=== PATIENT | male | born 1955 | race African-American/Black ===

== ENCOUNTER 2023-01-04 01:42 | Inpatient (IN) | payer OTHER, MEDICARE ==
[2023-01-04] VITALS (16 sets, daily range): BP systolic 83–141; BP diastolic 46–88; PULSE 79–111; RESP 9–34; TEMP 100.4–104.1; O2SAT 91–100
[~2023-01-04] VITALS: Ht 180.3 cm; Wt 97.5 kg
[2023-01-04] MEDS ORDERED: ACETAMINOPHEN 325 MG TAB PO ONE (02:00)
[2023-01-04] MEDS ORDERED: SODIUM CHLORIDE 0.9% 1000ML 1,000 ML IV ONE ×2 (02:15→03:00)
[2023-01-04] MEDS ORDERED: ACETAMINOPHEN 325 MG TAB ONE (02:16)
[2023-01-04] MEDS ORDERED: SODIUM CHLORIDE 0.9% 1000ML 1,000 ML ONE ×2 (02:16→03:12)
[2023-01-04] MEDS ORDERED: ONDANSETRON HCL INJ 2MG/ML 2ML 2 MG/ML VIAL IV STA ×2 (02:48→08:11)
[2023-01-04] MEDS ORDERED: Morphine 2mg Syringe 2 MG/ML SYR IV ONE (03:00)
[2023-01-04] MEDS ORDERED: Morphine 4mg INJECTION 4 MG/ML INJ ONE ×2 (03:12→08:03)
[2023-01-04] MEDS ORDERED: ONDANSETRON HCL INJ 2MG/ML 2ML 2 MG/ML VIAL ONE (03:12)
[2023-01-04] MEDS ORDERED: ONDANSETRON HCL INJ 2MG/ML 2ML 2 MG/ML VIAL IV PRN ×2 (03:30→08:15)
[2023-01-04] MEDS ORDERED: Morphine 2mg Syringe 2 MG/ML SYR IV PRN (03:30)
[2023-01-04] MEDS: SODIUM CHLORIDE 0.9% 1000ML 1,000 ML IV SCH ×3 (04:53→17:13)
[2023-01-04] MEDS ORDERED: SODIUM CHLORIDE 0.9% 1000ML 1,000 ML IV STA (04:59)
[2023-01-04] MEDS ORDERED: MULTIVITAMINS- 12 INJECTION 10 ML, FOLIC ACID MDV 1 MG, THIAMINE HCL INJ 100 MG in SODI... IV ONE (05:45)
[2023-01-04] MEDS ORDERED: LORAZEPAM INJ 2 MG/ML VIAL IV PRN (08:15)
[2023-01-04] MEDS ORDERED: Morphine 4mg INJECTION 4 MG/ML INJ IV ONE (08:15)
[2023-01-04] MEDS ORDERED: LORAZEPAM INJ 2 MG/ML VIAL IV ONE (08:15)
[2023-01-04] MEDS ORDERED: Morphine 4mg INJECTION 4 MG/ML INJ IV PRN (08:15)
[2023-01-04 08:33] LABS: ALBUMIN 3.1 g/dL (3.5-5.0); ALBUMIN/GLOBULIN RATIO 0.9 (0.8-2.0); CALCIUM 8.5 mg/dL (8.4-10.2); CREATININE, SERUM 1.13 mg/dL (0.72-1.25)
[2023-01-04 08:39] LABS: CREATINE KINASE MB 3.8 ng/mL (0-5.0)
[2023-01-04] MEDS ORDERED: CLONIDINE HCL 0.1 MG TAB PO PRN (11:15)
[2023-01-04] MEDS: ACETAMINOPHEN 325 MG TAB PO PRN ×2 (12:10→20:29)
[2023-01-04] MEDS: ACETAMIN/BUTALBITAL/CAFFEINE TAB PO PRN (12:10)
[2023-01-04] MEDS: CHLORDIAZEPOXIDE HCL 25 MG CAP PO SCH ×2 (12:11→17:14)
[2023-01-04] MEDS: LORAZEPAM INJ 2 MG/ML VIAL IV PRN (17:11)
[2023-01-04] MEDS ORDERED: Vancomycin IV 1 GM in SODIUM CHLORIDE 0.9% 250ML 250 ML IV ONE (17:30)
[2023-01-04] MEDS ORDERED: CRESTOR10 MG PO (17:40)
[2023-01-04] MEDS ORDERED: AMLODIPINE-BEN1 EAC4 PO (17:45)
[2023-01-04] MEDS ORDERED: AMLODIPINE-BEN1 EAC2 PO (17:47)
[2023-01-04 17:58] LABS: BASOPHILS % 0.8 % (0.0-1.0); HEMATOCRIT 40.8 % (38.2-49.6); HEMOGLOBIN 13.5 g/dL (14.0-18.0); LYMPHOCYTES # (AUTO) 0.5 (1.0-3.2); LYMPHOCYTES % 11.7 % (18.0-39.1); MEAN CORPUSCULAR HEMOGLOBIN 30.1 pg (28-32); MEAN CORPUSCULAR HGB CONC 33.1 g/dL (31-35); MEAN CORPUSCULAR VOLUME 91.1 fL (81-99); MONOCYTES # (AUTO) 0.3 (0.2-0.8); MONOCYTES % 7.1 % (4.4-11.3); NEUTROPHILS # (AUTO) 3.1 (2.1-6.9); NEUTROPHILS % 79.1 % (38.7-80.0); PLATELET COUNT 78 x10e3/uL (140-360); RED BLOOD COUNT 4.48 x10e6/uL (4.3-5.7); RED CELL DISTRIBUTION WIDTH 13.6 % (11.7-14.4)
[2023-01-04] MEDS ORDERED: ACYCLOVIR SODIUM 800 MG in SODIUM CHLORIDE 0.9% 250ML 250 ML IV SCH (18:00)
[2023-01-04] MEDS: THIAMINE HCL INJ 100 MG/ML 2ML VIAL IV SCH (19:08)
[2023-01-04] MEDS: LACTATED RINGER'S 1,000 ML INJ SCH (19:08)
[2023-01-04 19:38] LABS: BAND NEUTROPHILS % (MANUAL) 14 %; LYMPHOCYTES % (MANUAL) 8 % (19-48); MONOCYTES % (MANUAL) 5 % (3.4-9.0); NEUTROPHILS % (MANUAL) 73 % (40-74)
[2023-01-04 19:39] LABS: PLATELET ESTIMATE SLIGHTLY DECREASED; PLATELET MORPHOLOGY COMMENT NORMAL; RBC MORPHOLOGY COMMENT NORMAL
[2023-01-04] MEDS: Vancomycin IV 1.25 GM in SODIUM CHLORIDE 0.9% 250ML 250 ML IV SCH (20:01)
[2023-01-04] MEDS: CEFTRIAXONE 2 GM in SODIUM CHLORIDE 0.9% 100 ML IV SCH (20:27)
[2023-01-04] MEDS: ATORVASTATIN 20 MG TAB PO SCH (21:53)
[2023-01-04] MEDS ORDERED: ACYCLOVIR SODIUM 700 MG in SODIUM CHLORIDE 0.9% 250ML 250 ML IV SCH (22:00)
[2023-01-04] MEDS ORDERED: ACYCLOVIR SODIUM INJ 2 VIAL IV ONE (22:27)
[2023-01-04] MEDS ORDERED: SODIUM CHLORIDE 0.9% 250ML 250 ML ONE (22:31)
[2023-01-05] VITALS (36 sets, daily range): BP systolic 76–125; BP diastolic 43–97; PULSE 27–139; RESP 18–46; TEMP 98.4–103.4; O2SAT 71–100
[2023-01-05] MEDS ORDERED: Ampicillin INJ 1 GM Vial ONE (00:44)
[2023-01-05] MEDS ORDERED: SODIUM CHLORIDE 0.9% 100 ML ONE (00:44)
[2023-01-05] MEDS: CHLORDIAZEPOXIDE HCL 25 MG CAP PO SCH ×4 (00:45→18:08)
[2023-01-05] MEDS: Ampicillin INJ 2 GM in SODIUM CHLORIDE 0.9% 100 ML IV SCH ×4 (00:46→17:53)
[2023-01-05] MEDS: LACTATED RINGER'S 1,000 ML INJ SCH ×3 (01:30→16:33)
[2023-01-05] MEDS: ACETAMIN/BUTALBITAL/CAFFEINE TAB PO PRN (01:59)
[2023-01-05 05:54] LABS: BASOPHILS % 0.9 % (0.0-1.0); HEMATOCRIT 35.5 % (38.2-49.6); HEMOGLOBIN 11.7 g/dL (14.0-18.0); LYMPHOCYTES # (AUTO) 0.4 (1.0-3.2); LYMPHOCYTES % 10.1 % (18.0-39.1); MEAN CORPUSCULAR HEMOGLOBIN 29.8 pg (28-32); MEAN CORPUSCULAR VOLUME 90.6 fL (81-99); MONOCYTES # (AUTO) 0.1 (0.2-0.8); NEUTROPHILS # (AUTO) 2.9 (2.1-6.9); NEUTROPHILS % 84.7 % (38.7-80.0); PLATELET COUNT 65 x10e3/uL (140-360); RED BLOOD COUNT 3.92 x10e6/uL (4.3-5.7); RED CELL DISTRIBUTION WIDTH 13.5 % (11.7-14.4)
[2023-01-05 06:29] LABS: ALBUMIN 2.4 g/dL (3.5-5.0); ALBUMIN/GLOBULIN RATIO 0.9 (0.8-2.0); ANION GAP 12.3 mmol/L (8-16); CREATININE, SERUM 0.81 mg/dL (0.72-1.25); POTASSIUM 3.3 mmol/L (3.5-5.1)
[2023-01-05 06:33] LABS: THYROID STIMULATING HORMONE 0.455 uIU/mL (0.350-4.940)
[2023-01-05 07:30] LABS: BAND NEUTROPHILS % (MANUAL) 10 %; LYMPHOCYTES % (MANUAL) 5 % (19-48); MONOCYTES % (MANUAL) 1 % (3.4-9.0); NEUTROPHILS % (MANUAL) 84 % (40-74)
[2023-01-05] MEDS: PANTOPRAZOLE SOD 40 MG TABEC PO SCH (07:30)
[2023-01-05 07:31] LABS: PLATELET ESTIMATE MODERATELY DECREASED; PLATELET MORPHOLOGY COMMENT NORMAL; RBC MORPHOLOGY COMMENT NORMAL
[2023-01-05] MEDS: CEFTRIAXONE 2 GM in SODIUM CHLORIDE 0.9% 100 ML IV SCH ×2 (08:17→20:59)
[2023-01-05] MEDS: ACETAMINOPHEN 325 MG TAB PO PRN ×2 (08:39→19:18)
[2023-01-05] MEDS ORDERED: AMLODIPINE BESYLATE 5 MG TAB PO SCH ×2 (09:00)
[2023-01-05] MEDS ORDERED: BENAZEPRIL HCL 10 MG TAB PO SCH (09:00)
[2023-01-05 09:19] LABS: INR 1.12; PROTHROMBIN TIME 14.9 seconds (11.9-14.5)
[2023-01-05] MEDS: Vancomycin IV 1.25 GM in SODIUM CHLORIDE 0.9% 250ML 250 ML IV SCH ×2 (09:20→19:21)
[2023-01-05] MEDS: ACYCLOVIR SODIUM 700 MG in SODIUM CHLORIDE 0.9% 100 ML IV SCH ×3 (09:48→23:03)
[2023-01-05] MEDS: THIAMINE HCL INJ 100 MG/ML 2ML VIAL IV SCH (09:49)
[2023-01-05] MEDS ORDERED: METOPROLOL TARTRATE INJ 1 MG/ML VIAL IV PRN (11:15)
[2023-01-05] MEDS ORDERED: MIDAZOLAM HCL 2 MG/2 ML VIAL ONE (11:16)
[2023-01-05] MEDS ORDERED: FENTANYL CITRATE/PF 100MCG/2 ML INJ ONE (11:16)
[2023-01-05] MEDS ORDERED: POTASSIUM CHLORIDE 10MEQ/100ML 100 ML IV ONE (11:45)
[2023-01-05] MEDS ORDERED: IBUPROFEN 100 MG/5 ML SUSP PO ONE (12:15)
[2023-01-05 13:39] LABS: APPEARANCE,CSF HAZY (CLEAR); COLOR,CSF COLORLESS (COLORLESS); TUBE NUMBER 3
[2023-01-05 14:23] LABS: LYMPHOCYTES,CSF 85 % (40-80); MONOCYTES,CSF 11 %; NEUTROPHILS,CSF 4 % (0-6); WHITE BLOOD CELL,CSF 1000 cells/uL (0-5)
[2023-01-05] MEDS: ATORVASTATIN 20 MG TAB PO SCH (21:21)
[2023-01-05] MEDS: ACETAMINOPHEN 1000 MG/100 ML IV PRN (21:46)
[2023-01-05] MEDS ORDERED: METOPROLOL TARTRATE 25 MG TAB PO SCH (22:00)
[2023-01-05] MEDS: VASOPRESSIN 60 UNIT in DEXTROSE 5% 100ML 57 ML IV SCH (22:27)
[2023-01-06] VITALS (55 sets, daily range): BP systolic 60–130; BP diastolic 41–96; PULSE 32–125; RESP 19–48; TEMP 97.7–100.7; O2SAT 46–100
[2023-01-06] MEDS: Ampicillin INJ 2 GM in SODIUM CHLORIDE 0.9% 100 ML IV SCH ×4 (01:32→18:40)
[2023-01-06] MEDS: VASOPRESSIN 60 UNIT in DEXTROSE 5% 100ML 57 ML IV SCH ×2 (04:56→22:30)
[2023-01-06] MEDS: LACTATED RINGER'S 1,000 ML INJ SCH ×4 (04:57→21:04)
[2023-01-06] MEDS: ACETAMINOPHEN 1000 MG/100 ML IV PRN ×2 (05:08→15:48)
[2023-01-06] MEDS: CHLORDIAZEPOXIDE HCL 25 MG CAP PO SCH ×4 (06:02→21:32)
[2023-01-06 06:55] LABS: BASOPHILS % 0.5 % (0.0-1.0); HEMATOCRIT 31.9 % (38.2-49.6); HEMOGLOBIN 10.5 g/dL (14.0-18.0); LYMPHOCYTES # (AUTO) 0.3 (1.0-3.2); LYMPHOCYTES % 7.3 % (18.0-39.1); MEAN CORPUSCULAR HEMOGLOBIN 29.3 pg (28-32); MEAN CORPUSCULAR HGB CONC 32.9 g/dL (31-35); MEAN CORPUSCULAR VOLUME 89.1 fL (81-99); MONOCYTES # (AUTO) 0.1 (0.2-0.8); MONOCYTES % 3.1 % (4.4-11.3); NEUTROPHILS # (AUTO) 3.8 (2.1-6.9); NEUTROPHILS % 88.2 % (38.7-80.0); RED BLOOD COUNT 3.58 x10e6/uL (4.3-5.7); RED CELL DISTRIBUTION WIDTH 13.6 % (11.7-14.4)
[2023-01-06 07:05] LABS: PLATELET COUNT 40 x10e3/uL (140-360)
[2023-01-06 07:28] LABS: ALBUMIN/GLOBULIN RATIO 0.8 (0.8-2.0); ANION GAP 12.2 mmol/L (8-16); CALCIUM 7.6 mg/dL (8.4-10.2); CREATININE, SERUM 0.91 mg/dL (0.72-1.25); POTASSIUM 3.2 mmol/L (3.5-5.1)
[2023-01-06] MEDS ORDERED: SODIUM CHLORIDE 0.9% 100 ML ONE (07:53)
[2023-01-06] MEDS: PANTOPRAZOLE SOD 40 MG TABEC PO SCH (08:20)
[2023-01-06] MEDS: ACYCLOVIR SODIUM 700 MG in SODIUM CHLORIDE 0.9% 100 ML IV SCH ×3 (08:20→23:58)
[2023-01-06] MEDS: THIAMINE HCL INJ 100 MG/ML 2ML VIAL IV SCH (08:22)
[2023-01-06] MEDS: Vancomycin IV 1.25 GM in SODIUM CHLORIDE 0.9% 250ML 250 ML IV SCH ×2 (08:25→19:28)
[2023-01-06] MEDS ORDERED: CEFTRIAXONE 2 GM VIAL ONE (08:29)
[2023-01-06] MEDS: CEFTRIAXONE 2 GM in SODIUM CHLORIDE 0.9% 100 ML IV SCH ×2 (09:19→21:06)
[2023-01-06 09:39] LABS: BAND NEUTROPHILS % (MANUAL) 6 %; LYMPHOCYTES % (MANUAL) 7 % (19-48); MONOCYTES % (MANUAL) 2 % (3.4-9.0); NEUTROPHILS % (MANUAL) 85 % (40-74)
[2023-01-06 09:40] LABS: PLATELET ESTIMATE MARKEDLY DECREASED; PLATELET MORPHOLOGY COMMENT NORMAL; RBC MORPHOLOGY COMMENT NORMAL
[2023-01-06] MEDS: POTASSIUM CHLORIDE 20MEQ/100ML 100 ML IV SCH ×2 (09:56→12:29)
[2023-01-06] MEDS: LORAZEPAM INJ 2 MG/ML VIAL IV PRN (15:43)
[2023-01-06] MEDS: METOPROLOL TARTRATE 25 MG TAB PO SCH (16:56)
[2023-01-06] MEDS: ATORVASTATIN 20 MG TAB PO SCH (21:06)
[2023-01-06] MEDS: ACETAMINOPHEN 325 MG TAB PO PRN (23:58)
[2023-01-07] VITALS (66 sets, daily range): BP systolic 81–142; BP diastolic 51–104; PULSE 54–122; RESP 17–46; TEMP 96.9–101.2; O2SAT 96–100
[2023-01-07] MEDS: Ampicillin INJ 2 GM in SODIUM CHLORIDE 0.9% 100 ML IV SCH ×5 (00:12→23:19)
[2023-01-07] MEDS: CHLORDIAZEPOXIDE HCL 25 MG CAP PO SCH (05:14)
[2023-01-07] MEDS: LACTATED RINGER'S 1,000 ML INJ SCH ×3 (05:58→23:59)
[2023-01-07] MEDS: Vancomycin IV 1.25 GM in SODIUM CHLORIDE 0.9% 250ML 250 ML IV SCH (06:00)
[2023-01-07 07:05] LABS: BASOPHILS # (AUTO) 0.1 (0.0-0.1); BASOPHILS % 0.9 % (0.0-1.0); HEMATOCRIT 35.9 % (38.2-49.6); HEMOGLOBIN 11.8 g/dL (14.0-18.0); LYMPHOCYTES # (AUTO) 0.7 (1.0-3.2); LYMPHOCYTES % 12.7 % (18.0-39.1); MEAN CORPUSCULAR HEMOGLOBIN 29.4 pg (28-32); MEAN CORPUSCULAR HGB CONC 32.9 g/dL (31-35); MEAN CORPUSCULAR VOLUME 89.5 fL (81-99); MONOCYTES # (AUTO) 0.3 (0.2-0.8); MONOCYTES % 4.6 % (4.4-11.3); NEUTROPHILS # (AUTO) 4.6 (2.1-6.9); NEUTROPHILS % 81.1 % (38.7-80.0); PLATELET COUNT 39 x10e3/uL (140-360); RED BLOOD COUNT 4.01 x10e6/uL (4.3-5.7); RED CELL DISTRIBUTION WIDTH 14.4 % (11.7-14.4)
[2023-01-07] MEDS: PANTOPRAZOLE SOD 40 MG TABEC PO SCH (07:30)
[2023-01-07 07:32] LABS: ALBUMIN 2.1 g/dL (3.5-5.0); ALBUMIN/GLOBULIN RATIO 0.7 (0.8-2.0); ANION GAP 12.8 mmol/L (8-16); CREATININE, SERUM 0.85 mg/dL (0.72-1.25); POTASSIUM 3.8 mmol/L (3.5-5.1)
[2023-01-07] MEDS ORDERED: CHLORDIAZEPOXIDE HCL 25 MG CAP PO PRN (08:30)
[2023-01-07 08:44] LABS: BAND NEUTROPHILS % (MANUAL) 5 %; LYMPHOCYTES % (MANUAL) 7 % (19-48); MONOCYTES % (MANUAL) 4 % (3.4-9.0); NEUTROPHILS % (MANUAL) 80 % (40-74)
[2023-01-07 08:45] LABS: PLATELET ESTIMATE MARKEDLY DECREASED; PLATELET MORPHOLOGY COMMENT NORMAL; RBC MORPHOLOGY COMMENT NORMAL; VACUOLE,WBC SLIGHT
[2023-01-07] MEDS: METOPROLOL TARTRATE 25 MG TAB PO SCH ×2 (09:00→15:45)
[2023-01-07] MEDS: ACYCLOVIR SODIUM 700 MG in SODIUM CHLORIDE 0.9% 100 ML IV SCH (09:16)
[2023-01-07] MEDS: CEFTRIAXONE 2 GM in SODIUM CHLORIDE 0.9% 100 ML IV SCH ×2 (09:17→20:52)
[2023-01-07] MEDS: THIAMINE HCL INJ 100 MG/ML 2ML VIAL IV SCH (09:17)
[2023-01-07] MEDS ORDERED: LORAZEPAM INJ 2 MG/ML VIAL IV PRN (11:00)
[2023-01-07] MEDS: ACETAMINOPHEN 650 MG SUPP PR PRN (16:51)
[2023-01-07] MEDS: VASOPRESSIN 60 UNIT in DEXTROSE 5% 100ML 57 ML IV SCH (17:19)
[2023-01-07] MEDS: ATORVASTATIN 20 MG TAB PO SCH (21:00)
[2023-01-08] VITALS (39 sets, daily range): BP systolic 83–126; BP diastolic 23–80; PULSE 52–74; RESP 21–39; TEMP 97.2–100.8; O2SAT 94–100
[2023-01-08] MEDS: ACETAMINOPHEN 325 MG TAB PO PRN (02:20)
[2023-01-08] MEDS: Ampicillin INJ 2 GM in SODIUM CHLORIDE 0.9% 100 ML IV SCH ×3 (05:24→18:17)
[2023-01-08 06:56] LABS: BASOPHILS % 0.4 % (0.0-1.0); EOSINOPHILS % 0.2 % (0.0-6.0); HEMATOCRIT 36.2 % (38.2-49.6); HEMOGLOBIN 11.7 g/dL (14.0-18.0); LYMPHOCYTES # (AUTO) 1.1 (1.0-3.2); MEAN CORPUSCULAR HEMOGLOBIN 29.3 pg (28-32); MEAN CORPUSCULAR HGB CONC 32.3 g/dL (31-35); MEAN CORPUSCULAR VOLUME 90.5 fL (81-99); MONOCYTES # (AUTO) 0.3 (0.2-0.8); MONOCYTES % 4.7 % (4.4-11.3); NEUTROPHILS # (AUTO) 4.1 (2.1-6.9); NEUTROPHILS % 74.2 % (38.7-80.0); PLATELET COUNT 40 x10e3/uL (140-360); RED CELL DISTRIBUTION WIDTH 14.8 % (11.7-14.4)
[2023-01-08 07:14] LABS: ALBUMIN/GLOBULIN RATIO 0.7 (0.8-2.0); ANION GAP 11.4 mmol/L (8-16); CALCIUM 7.9 mg/dL (8.4-10.2); CREATININE, SERUM 0.77 mg/dL (0.72-1.25); POTASSIUM 3.4 mmol/L (3.5-5.1)
[2023-01-08] MEDS: PANTOPRAZOLE SOD 40 MG TABEC PO SCH (07:30)
[2023-01-08 08:08] LABS: BAND NEUTROPHILS % (MANUAL) 1 %; LYMPHOCYTES % (MANUAL) 4 % (19-48); MONOCYTES % (MANUAL) 3 % (3.4-9.0); NEUTROPHILS % (MANUAL) 89 % (40-74); PLATELET ESTIMATE MARKEDLY DECREASED; PLATELET MORPHOLOGY COMMENT NORMAL; RBC MORPHOLOGY COMMENT NORMAL; TOXIC GRANULATION SLIGHT; VACUOLE,WBC SLIGHT
[2023-01-08] MEDS: METOPROLOL TARTRATE 25 MG TAB PO SCH ×2 (09:00→17:00)
[2023-01-08] MEDS: CEFTRIAXONE 2 GM in SODIUM CHLORIDE 0.9% 100 ML IV SCH ×2 (09:28→20:25)
[2023-01-08] MEDS: THIAMINE HCL INJ 100 MG/ML 2ML VIAL IV SCH (09:28)
[2023-01-08] MEDS: LACTATED RINGER'S 1,000 ML INJ SCH ×2 (09:29→18:21)
[2023-01-08] MEDS: POTASSIUM CHLORIDE 20MEQ/100ML 100 ML IV SCH ×2 (10:57→13:19)
[2023-01-08] MEDS: VASOPRESSIN 60 UNIT in DEXTROSE 5% 100ML 57 ML IV SCH (13:17)
[2023-01-08] MEDS ORDERED: MAGNESIUM SULFATE 2GM/50ML 50 ML IV ONE (18:15)
[2023-01-08] MEDS: ACETAMINOPHEN 650 MG SUPP PR PRN (19:07)
[2023-01-08] MEDS: ATORVASTATIN 20 MG TAB PO SCH (20:25)
[2023-01-09] VITALS (93 sets, daily range): BP systolic 90–128; BP diastolic 52–83; PULSE 46–84; RESP 16–37; TEMP 98–98.4; O2SAT 90–100
[2023-01-09] MEDS: Ampicillin INJ 2 GM in SODIUM CHLORIDE 0.9% 100 ML IV SCH ×5 (00:05→23:42)
[2023-01-09] MEDS: LACTATED RINGER'S 1,000 ML INJ SCH ×3 (00:07→19:42)
[2023-01-09] MEDS: VASOPRESSIN 60 UNIT in DEXTROSE 5% 100ML 57 ML IV SCH (00:19)
[2023-01-09 07:11] LABS: BASOPHILS % 0.7 % (0.0-1.0); EOSINOPHILS % 0.2 % (0.0-6.0); HEMATOCRIT 32.1 % (38.2-49.6); HEMOGLOBIN 10.4 g/dL (14.0-18.0); LYMPHOCYTES # (AUTO) 1.7 (1.0-3.2); LYMPHOCYTES % 29.5 % (18.0-39.1); MEAN CORPUSCULAR HEMOGLOBIN 29.5 pg (28-32); MEAN CORPUSCULAR HGB CONC 32.4 g/dL (31-35); MEAN CORPUSCULAR VOLUME 90.9 fL (81-99); MONOCYTES # (AUTO) 0.3 (0.2-0.8); MONOCYTES % 5.3 % (4.4-11.3); NEUTROPHILS # (AUTO) 3.7 (2.1-6.9); NEUTROPHILS % 63.9 % (38.7-80.0); PLATELET COUNT 43 x10e3/uL (140-360); RED BLOOD COUNT 3.53 x10e6/uL (4.3-5.7); RED CELL DISTRIBUTION WIDTH 15.3 % (11.7-14.4)
[2023-01-09] MEDS: PANTOPRAZOLE SOD 40 MG TABEC PO SCH (07:30)
[2023-01-09 07:32] LABS: ALBUMIN/GLOBULIN RATIO 0.8 (0.8-2.0); ANION GAP 10.5 mmol/L (8-16); CALCIUM 7.8 mg/dL (8.4-10.2); CREATININE, SERUM 0.69 mg/dL (0.72-1.25); POTASSIUM 3.5 mmol/L (3.5-5.1)
[2023-01-09] MEDS: CEFTRIAXONE 2 GM in SODIUM CHLORIDE 0.9% 100 ML IV SCH ×2 (08:16→20:35)
[2023-01-09] MEDS: THIAMINE HCL INJ 100 MG/ML 2ML VIAL IV SCH (08:17)
[2023-01-09] MEDS: METOPROLOL TARTRATE 25 MG TAB PO SCH ×2 (08:17→16:01)
[2023-01-09 09:40] LABS: LYMPHOCYTES % (MANUAL) 10 % (19-48); MONOCYTES % (MANUAL) 6 % (3.4-9.0); NEUTROPHILS % (MANUAL) 84 % (40-74); PLATELET ESTIMATE MARKEDLY DECREASED; PLATELET MORPHOLOGY COMMENT NORMAL; RBC MORPHOLOGY COMMENT NORMAL
[2023-01-09] MEDS ORDERED: FUROSEMIDE INJ 10 MG/ML 2 ML VIAL IV ONE (16:15)
[2023-01-09] MEDS: ATORVASTATIN 20 MG TAB PO SCH (19:42)
[2023-01-10] VITALS (77 sets, daily range): BP systolic 100–126; BP diastolic 59–101; PULSE 49–72; RESP 14–35; TEMP 97.9–98.8; O2SAT 98–100
[2023-01-10] MEDS: Ampicillin INJ 2 GM in SODIUM CHLORIDE 0.9% 100 ML IV SCH ×4 (04:19→23:10)
[2023-01-10 07:25] LABS: BASOPHILS # (AUTO) 0.1 (0.0-0.1); BASOPHILS % 0.7 % (0.0-1.0); EOSINOPHILS % 0.3 % (0.0-6.0); HEMATOCRIT 30.7 % (38.2-49.6); HEMOGLOBIN 9.7 g/dL (14.0-18.0); LYMPHOCYTES # (AUTO) 2.4 (1.0-3.2); LYMPHOCYTES % 33.6 % (18.0-39.1); MEAN CORPUSCULAR HEMOGLOBIN 29.3 pg (28-32); MEAN CORPUSCULAR HGB CONC 31.6 g/dL (31-35); MEAN CORPUSCULAR VOLUME 92.7 fL (81-99); MONOCYTES # (AUTO) 0.3 (0.2-0.8); MONOCYTES % 3.9 % (4.4-11.3); NEUTROPHILS # (AUTO) 4.4 (2.1-6.9); NEUTROPHILS % 61.1 % (38.7-80.0); PLATELET COUNT 53 x10e3/uL (140-360); RED BLOOD COUNT 3.31 x10e6/uL (4.3-5.7); RED CELL DISTRIBUTION WIDTH 15.1 % (11.7-14.4)
[2023-01-10] MEDS: PANTOPRAZOLE SOD 40 MG TABEC PO SCH (07:56)
[2023-01-10] MEDS: CEFTRIAXONE 2 GM in SODIUM CHLORIDE 0.9% 100 ML IV SCH ×2 (08:04→19:53)
[2023-01-10] MEDS: THIAMINE HCL INJ 100 MG/ML 2ML VIAL IV SCH (08:04)
[2023-01-10] MEDS: METOPROLOL TARTRATE 25 MG TAB PO SCH ×2 (08:05→16:58)
[2023-01-10 08:13] LABS: ALBUMIN 1.7 g/dL (3.5-5.0); ALBUMIN/GLOBULIN RATIO 0.7 (0.8-2.0); ANION GAP 14.3 mmol/L (8-16); CALCIUM 7.4 mg/dL (8.4-10.2); CREATININE, SERUM 0.56 mg/dL (0.72-1.25); POTASSIUM 3.3 mmol/L (3.5-5.1)
[2023-01-10] MEDS ORDERED: POTASSIUM CHLORIDE 20MEQ/100ML 200 ML IV ONE (10:30)
[2023-01-10 11:41] LABS: BAND NEUTROPHILS % (MANUAL) 3 %; EOSINOPHILS % (MANUAL) 1 % (0-7); LYMPHOCYTES % (MANUAL) 11 % (19-48); MONOCYTES % (MANUAL) 8 % (3.4-9.0); NEUTROPHILS % (MANUAL) 73 % (40-74)
[2023-01-10 11:42] LABS: PLATELET ESTIMATE MODERATELY DECREASED; PLATELET MORPHOLOGY COMMENT NORMAL
[2023-01-10] MEDS ORDERED: ARTIFICIAL TEARS (OPTH) 15 ML BTL OP PRN (14:45)
[2023-01-10] MEDS: LACTATED RINGER'S 1,000 ML INJ SCH (18:38)
[2023-01-10] MEDS: ATORVASTATIN 20 MG TAB PO SCH (19:53)
[2023-01-10] MEDS: VASOPRESSIN 60 UNIT in DEXTROSE 5% 100ML 57 ML IV SCH (21:45)
[2023-01-11] VITALS (30 sets, daily range): BP systolic 103–133; BP diastolic 55–104; PULSE 65–85; RESP 14–30; TEMP 98.1–98.8; O2SAT 90–100
[2023-01-11] MEDS: Ampicillin INJ 2 GM in SODIUM CHLORIDE 0.9% 100 ML IV SCH ×4 (05:03→23:41)
[2023-01-11 07:05] LABS: BASOPHILS # (AUTO) 0.1 (0.0-0.1); BASOPHILS % 0.6 % (0.0-1.0); EOSINOPHILS % 0.4 % (0.0-6.0); HEMATOCRIT 33.5 % (38.2-49.6); HEMOGLOBIN 10.6 g/dL (14.0-18.0); LYMPHOCYTES % 38.3 % (18.0-39.1); MEAN CORPUSCULAR HEMOGLOBIN 29.4 pg (28-32); MEAN CORPUSCULAR HGB CONC 31.6 g/dL (31-35); MEAN CORPUSCULAR VOLUME 92.8 fL (81-99); MONOCYTES # (AUTO) 0.3 (0.2-0.8); MONOCYTES % 3.5 % (4.4-11.3); NEUTROPHILS # (AUTO) 4.5 (2.1-6.9); NEUTROPHILS % 56.6 % (38.7-80.0); PLATELET COUNT 64 x10e3/uL (140-360); RED BLOOD COUNT 3.61 x10e6/uL (4.3-5.7); RED CELL DISTRIBUTION WIDTH 14.9 % (11.7-14.4)
[2023-01-11 07:26] LABS: ALBUMIN 1.7 g/dL (3.5-5.0); ALBUMIN/GLOBULIN RATIO 0.6 (0.8-2.0); ANION GAP 14.1 mmol/L (8-16); CALCIUM 7.1 mg/dL (8.4-10.2); CREATININE, SERUM 0.58 mg/dL (0.72-1.25); POTASSIUM 3.1 mmol/L (3.5-5.1)
[2023-01-11] MEDS: PANTOPRAZOLE SOD 40 MG TABEC PO SCH (08:01)
[2023-01-11] MEDS: METOPROLOL TARTRATE 25 MG TAB PO SCH ×2 (08:01→16:42)
[2023-01-11] MEDS: CEFTRIAXONE 2 GM in SODIUM CHLORIDE 0.9% 100 ML IV SCH ×2 (08:02→20:24)
[2023-01-11] MEDS: THIAMINE HCL INJ 100 MG/ML 2ML VIAL IV SCH (08:02)
[2023-01-11] MEDS ORDERED: POTASSIUM CHLORIDE 20MEQ/100ML 200 ML IV ONE (09:45)
[2023-01-11 10:35] LABS: PLATELET ESTIMATE MODERATELY DECREASED; PLATELET MORPHOLOGY COMMENT NORMAL
[2023-01-11] MEDS: LACTATED RINGER'S 1,000 ML INJ SCH (14:17)
[2023-01-11] MEDS: ATORVASTATIN 20 MG TAB PO SCH (20:23)
[2023-01-11] MEDS: ACETAMIN/BUTALBITAL/CAFFEINE TAB PO PRN ×2 (22:28→23:42)
[2023-01-12] VITALS (15 sets, daily range): BP systolic 113–135; BP diastolic 59–87; PULSE 56–76; RESP 16–25; TEMP 97.8–98.7; O2SAT 95–100
[2023-01-12] MEDS: Ampicillin INJ 2 GM in SODIUM CHLORIDE 0.9% 100 ML IV SCH ×3 (05:11→17:27)
[2023-01-12 06:44] LABS: BASOPHILS % 0.6 % (0.0-1.0); EOSINOPHILS % 0.6 % (0.0-6.0); HEMATOCRIT 35.1 % (38.2-49.6); HEMOGLOBIN 10.8 g/dL (14.0-18.0); LYMPHOCYTES # (AUTO) 2.8 (1.0-3.2); LYMPHOCYTES % 39.8 % (18.0-39.1); MEAN CORPUSCULAR HEMOGLOBIN 29.1 pg (28-32); MEAN CORPUSCULAR HGB CONC 30.8 g/dL (31-35); MEAN CORPUSCULAR VOLUME 94.6 fL (81-99); MONOCYTES # (AUTO) 0.3 (0.2-0.8); MONOCYTES % 4.7 % (4.4-11.3); NEUTROPHILS # (AUTO) 3.8 (2.1-6.9); NEUTROPHILS % 53.9 % (38.7-80.0); PLATELET COUNT 88 x10e3/uL (140-360); RED BLOOD COUNT 3.71 x10e6/uL (4.3-5.7); RED CELL DISTRIBUTION WIDTH 14.9 % (11.7-14.4)
[2023-01-12 07:02] LABS: ANION GAP 9.5 mmol/L (8-16); CALCIUM 7.6 mg/dL (8.4-10.2); CREATININE, SERUM 0.62 mg/dL (0.72-1.25); MAGNESIUM 2.2 MG/DL (1.3-2.1); POTASSIUM 3.5 mmol/L (3.5-5.1)
[2023-01-12 07:33] LABS: EOSINOPHILS % (MANUAL) 1 % (0-7); LYMPHOCYTES % (MANUAL) 22 % (19-48); MONOCYTES % (MANUAL) 2 % (3.4-9.0); NEUTROPHILS % (MANUAL) 65 % (40-74)
[2023-01-12 07:34] LABS: PLATELET ESTIMATE MODERATELY DECREASED; PLATELET MORPHOLOGY COMMENT NORMAL; POLYCHROMASIA FEW; RBC MORPHOLOGY COMMENT NORMAL
[2023-01-12] MEDS: PANTOPRAZOLE SOD 40 MG TABEC PO SCH (09:56)
[2023-01-12] MEDS: THIAMINE HCL INJ 100 MG/ML 2ML VIAL IV SCH (09:56)
[2023-01-12] MEDS: METOPROLOL TARTRATE 25 MG TAB PO SCH ×2 (09:57→17:27)
[2023-01-12] MEDS: CEFTRIAXONE 2 GM in SODIUM CHLORIDE 0.9% 100 ML IV SCH ×2 (09:57→23:14)
[2023-01-12 10:34] LABS: CLARITY,URINE CLEAR (CLEAR); COLOR,URINE YELLOW (YELLOW); KETONES,URINE NEGATIVE (NEGATIVE); LEUKOCYTE ESTERASE ,URINE NEGATIVE (NEGATIVE); NITRITE,URINE NEGATIVE (NEGATIVE); PROTEIN,URINE DIPSTICK TRACE (NEGATIVE); URINE UROBILINOGEN 0.2 mg/dL (0.2 - 1)
[2023-01-12 10:39] LABS: BACTERIA,URINE FEW /HPF; EPITHELIAL CELLS,URINE FEW /LPF
[2023-01-12] MEDS: LACTATED RINGER'S 1,000 ML INJ SCH (15:12)
[2023-01-12] MEDS: ATORVASTATIN 20 MG TAB PO SCH (23:15)
[2023-01-13] VITALS (8 sets, daily range): BP systolic 116–137; BP diastolic 51–85; PULSE 58–77; RESP 18–23; TEMP 97.9–99; O2SAT 94–99
[2023-01-13] MEDS: Ampicillin INJ 2 GM in SODIUM CHLORIDE 0.9% 100 ML IV SCH ×5 (00:45→23:32)
[2023-01-13] MEDS: THIAMINE HCL INJ 100 MG/ML 2ML VIAL IV SCH (09:56)
[2023-01-13] MEDS: CEFTRIAXONE 2 GM in SODIUM CHLORIDE 0.9% 100 ML IV SCH ×2 (09:56→21:27)
[2023-01-13] MEDS: METOPROLOL TARTRATE 25 MG TAB PO SCH ×2 (09:57→17:52)
[2023-01-13] MEDS: PANTOPRAZOLE SOD 40 MG TABEC PO SCH (09:57)
[2023-01-13] MEDS ORDERED: ONDANSETRON HCL 4 MG ORAL DISINTEGRATING TAB PO PRN (11:15)
[2023-01-13] MEDS: LACTATED RINGER'S 1,000 ML INJ SCH (12:43)
[2023-01-13] MEDS: FUROSEMIDE INJ 10 MG/ML 2 ML VIAL IV SCH (17:51)
[2023-01-13] MEDS: ATORVASTATIN 20 MG TAB PO SCH (21:28)
[2023-01-14] VITALS (7 sets, daily range): BP systolic 97–142; BP diastolic 61–71; PULSE 65–80; RESP 17–24; TEMP 97.2–98.8; O2SAT 95–100
[2023-01-14] MEDS: Ampicillin INJ 2 GM in SODIUM CHLORIDE 0.9% 100 ML IV SCH ×3 (05:24→17:07)
[2023-01-14 05:33] LABS: BASOPHILS % 0.6 % (0.0-1.0); EOSINOPHILS % 0.8 % (0.0-6.0); HEMATOCRIT 33.3 % (38.2-49.6); HEMOGLOBIN 10.4 g/dL (14.0-18.0); LYMPHOCYTES # (AUTO) 2.4 (1.0-3.2); LYMPHOCYTES % 44.8 % (18.0-39.1); MEAN CORPUSCULAR HEMOGLOBIN 29.7 pg (28-32); MEAN CORPUSCULAR HGB CONC 31.2 g/dL (31-35); MEAN CORPUSCULAR VOLUME 95.1 fL (81-99); MONOCYTES # (AUTO) 0.4 (0.2-0.8); MONOCYTES % 7.6 % (4.4-11.3); NEUTROPHILS # (AUTO) 2.4 (2.1-6.9); NEUTROPHILS % 46.2 % (38.7-80.0); PLATELET COUNT 102 x10e3/uL (140-360); RED CELL DISTRIBUTION WIDTH 14.6 % (11.7-14.4)
[2023-01-14 06:04] LABS: ANION GAP 12.2 mmol/L (8-16); CALCIUM 7.9 mg/dL (8.4-10.2); CREATININE, SERUM 0.64 mg/dL (0.72-1.25); POTASSIUM 3.2 mmol/L (3.5-5.1)
[2023-01-14 07:22] LABS: EOSINOPHILS % (MANUAL) 1 % (0-7); LYMPHOCYTES % (MANUAL) 32 % (19-48); MONOCYTES % (MANUAL) 10 % (3.4-9.0); NEUTROPHILS % (MANUAL) 53 % (40-74)
[2023-01-14 07:23] LABS: PLATELET ESTIMATE SLIGHTLY DECREASED
[2023-01-14 07:27] LABS: PLATELET MORPHOLOGY COMMENT NORMAL; RBC MORPHOLOGY COMMENT NORMAL
[2023-01-14] MEDS: THIAMINE HCL INJ 100 MG/ML 2ML VIAL IV SCH (09:27)
[2023-01-14] MEDS: FUROSEMIDE INJ 10 MG/ML 2 ML VIAL IV SCH (09:27)
[2023-01-14] MEDS: METOPROLOL TARTRATE 25 MG TAB PO SCH ×2 (09:27→17:06)
[2023-01-14] MEDS: CEFTRIAXONE 2 GM in SODIUM CHLORIDE 0.9% 100 ML IV SCH (09:28)
[2023-01-14] MEDS: PANTOPRAZOLE SOD 40 MG TABEC PO SCH (09:28)
[2023-01-14] MEDS ORDERED: POTASSIUM CHLORIDE 10MEQ EA PO ONE (11:45)
[2023-01-14] MEDS: ATORVASTATIN 20 MG TAB PO SCH (20:47)
[2023-01-15] MEDS: Ampicillin INJ 2 GM in SODIUM CHLORIDE 0.9% 100 ML IV SCH (00:04)
[2023-01-15 01:10] VITALS: BP 122/71; PULSE 69; RESP 18; TEMP 98.9; O2SAT 95
[2023-01-15 05:43] VITALS: BP 117/62; PULSE 66; RESP 20; TEMP 97; O2SAT 97
[2023-01-15] MEDS: PANTOPRAZOLE SOD 40 MG TABEC PO SCH (08:29)
[2023-01-15] MEDS: THIAMINE HCL INJ 100 MG/ML 2ML VIAL IV SCH (08:30)
[2023-01-15] MEDS: METOPROLOL TARTRATE 25 MG TAB PO SCH (08:35)
[2023-01-15 09:03] VITALS: BP 114/68; PULSE 67; RESP 18; TEMP 98; O2SAT 98
[2023-01-15] MEDS ORDERED: LOPRESSOR25 MG PO (11:50)
[2023-01-15] MEDS ORDERED: AMOXICILLIN250 MG PO (11:50)
[2023-01-15] MEDS ORDERED: VITAMIN B-1100 M1 PO (11:50)
[2023-01-15 13:07] VITALS: BP 123/71; PULSE 68; RESP 18; TEMP 97.8; O2SAT 99
[2023-01-15] MEDS ORDERED: AMOXICILLIN 250 MG CAP PO SCH (14:00)
[2023-01-16] MEDS ORDERED: THIAMINE HCL 100 MG TAB PO SCH (09:00)
[2023-01-16] MEDS ORDERED: VITAMIN B-1100 M1 PO (18:07)
[2023-01-16] MEDS ORDERED: AMOXICILLIN250 MG PO (18:07)
[2023-01-16] MEDS ORDERED: LOPRESSOR25 MG PO (18:07)
== END 2023-01-15 16:38 | disposition home or self-care (01) | DRG 94 ==
LOC: FSED 01:47 → ERHOLD 03:23 → ICU 16:28 → MED/SURG2 01-12 11:24
PROVIDERS: ADMIT Internal Medicine; ATTEND Internal Medicine
PROC: 009U3ZX Drainage of Spinal Canal, Percutaneous Approach, Diagnostic (ICD-10-PCS; principal; 2023-01-05)
PROC: B01B1ZZ Fluoroscopy of Spinal Cord using Low Osmolar Contrast (ICD-10-PCS; 2023-01-05)
PROC: 02HV33Z Insertion of Infusion Device into Superior Vena Cava, Percutaneous Approach (ICD-10-PCS; 2023-01-05)
DX: G00.9 Bacterial meningitis, unspecified (principal); G93.41 Metabolic encephalopathy; F10.239 Alcohol dependence with withdrawal, unspecified; M62.82 Rhabdomyolysis; N17.9 Acute kidney failure, unspecified; I10 Essential (primary) hypertension; E78.00 Pure hypercholesterolemia, unspecified; D69.6 Thrombocytopenia, unspecified; K70.30 Alcoholic cirrhosis of liver without ascites; E86.0 Dehydration; Z85.46 Personal history of malignant neoplasm of prostate; E87.6 Hypokalemia; E83.42 Hypomagnesemia; R00.0 Tachycardia, unspecified; I49.9 Cardiac arrhythmia, unspecified; I95.9 Hypotension, unspecified; R13.10 Dysphagia, unspecified
CPT/HCPCS: 36415; 36569; 62328; 70450; 71045; 74230; 74470; 76700; 80048; 80053; 80202; 80320; 81001; 82550; 82553; 82945; 83010; 83518; 83605; 83735; 84157; 84443; 84484; 85025; 85045; 85610; 85730; 87040; 87070; 87086; 87205; 87400; 89051; 93005; 93306; 94799; 96374; 96376; 99285; J0696; J1940; J2060; J2250; J2270; J2405; J3411; J3475; J3480; J7030; J7050